=== PATIENT | male | born 1990 | race Caucasian/White ===

== ENCOUNTER 2018-06-30 17:27 | Emergency (ER) | payer OTHER ==
--- NOTE | 2018-06-30 17:40 | ER Report ---
History and Physical Time Seen By MD: 17:40 HPI/ROS CHIEF COMPLAINT: Abdominal pain HISTORY OF PRESENT ILLNESS: 28-year-old male patient presents to emergency room with complaint of abdominal pain. Patient states he's had abdominal pain since . States pain seems to be in the lower abdomen and seems to radiate left right. Patient states that there is nothing seems to make the pain better or worse. He states that he did have a sharp pain on Saturday which he rated a 7 out of 10. He states that happened while he was working and was lifting heavy things. Patient states that currently his pain is a 2-4 out of 10. He denies any fevers, chills, nausea, vomiting or diarrhea. He states he's not had any difficulties eating or drinking. He has not taken any medication for this. Patient also states he does have some tenderness to the top of the left foot. He states that this is been hurting for 2 weeks. States he initially injured it hitting it on a futon in his house. REVIEW OF SYSTEMS: Respiratory: No cough, no dyspnea. Cardiovascular: No chest pain, no palpitations. Gastrointestinal: As noted above. Musculoskeletal: As noted above Allergies: Coded Allergies: No Known Drug Allergies (Unverified , 06/30/18) Home Meds Active Scripts Omeprazole (OMEPRAZOLE) 40 Mg Capsule., 40 MG PO QDAY, #30 CAP Prov:VERNON HAGENP 06/30/18 Sucralfate (CARAFATE) 1 Gm Tablet, 1 GM PO QID, #60 TAB Take before meals and at bedtime. Crush the tablet and mix with water before taking. Prov:VERNON HAGEN 06/30/18 Past Medical/Surgical History Patient has a past medical history of alcohol use. Patient denies any surgical history. Reviewed Nurses Notes: Yes Constitutional Vital Sign - Last 24 Hours 06/30/18 06/30/18 06/30/18 06/30/18 17:35 17:38 17:42 17:57 Temp 98.6 Pulse 108 95 96 Resp 20 B/P (MAP) 165/81 165/81 (109) Pulse Ox 93 95 96 O2 Delivery Room Air 06/30/18 06/30/18 06/30/18 06/30/18 18:12 18:17 18:30 18:42 Pulse 96 92 B/P (MAP) 135/77 (96) 135/81 (99) Pulse Ox 96 96 06/30/18 06/30/18 06/30/18 06/30/18 18:59 19:00 19:12 19:17 Pulse 89 93 B/P (MAP) 147/86 (106) 142/83 (102) Pulse Ox 96 96 06/30/18 06/30/18 06/30/18 06/30/18 19:30 19:32 20:00 20:02 Pulse 90 91 B/P (MAP) 130/77 (94) 135/82 (99) Pulse Ox 98 95 06/30/18 06/30/18 06/30/18 06/30/18 20:17 20:22 20:30 20:37 Pulse 92 93 91 B/P (MAP) 129/74 (92) Pulse Ox 95 97 95 06/30/18 06/30/18 06/30/18 20:52 21:00 21:07 Pulse 101 93 B/P (MAP) 132/78 (96) Pulse Ox 93 95 Physical Exam General Appearance: The patient is alert, has no immediate need for airway protection and no current signs of toxicity. Respiratory: Chest is non tender, lungs are clear to auscultation. Cardiac: regular rate and rhythm Gastrointestinal: Abdomen is soft and non tender, no masses, bowel sounds normal . Musculoskeletal: Neck: Neck is supple and non tender. Extremities have full range of motion and are non tender. Skin: No rashes or lesions. DIFFERENTIAL DIAGNOSIS: After history and physical exam differential diagnosis was considered for abdominal pain including but not limited to appendicitis, cholecystitis, gastritis and urinary tract infection. Medical Decision Making Data Points Result Diagram: 06/30/18191506/30/18 1754 Laboratory Hematology Test 06/30/18 17:54 06/30/18 19:16 06/30/18 19:46 06/30/18 19:58 Sodium Level 138 mmol/L (137-145) Potassium Level 4.1 mmol/L (3.5-5.0) Chloride Level 103 mmol/L (98-107) Carbon Dioxide Level 27 mmol/L (22-30) Blood Urea Nitrogen 15 mg/dl (9-21) Creatinine 1.20 mg/dl (0.66-1.25) Glomerular Filtration Rate Calc > 60.0 Random Glucose 94 mg/dl (75-110) Calcium Level 9.2 mg/dl (8.4-10.2) Total Bilirubin 0.3 mg/dl (0.2-1.3) Aspartate Amino Transf (AST/SGOT) 32 U/L (0-35) Alanine Aminotransferase (ALT/SGPT) 32 U/L (0-56) Alkaline Phosphatase 53 U/L (0-126) Total Protein 7.6 g/dl (6.3-8.2) Albumin 4.4 g/dl (3.5-5.0) Amylase Level 77 U/L (0-110) Lipase 97 U/L (23-300) Red Blood Count 4.36 M/uL (4.00-5.60) Mean Corpuscular Volume 63.1 fL (80.0-96.0) Mean Corpuscular Hemoglobin 18.9 pg (26.0-33.0) Mean Corpuscular Hemoglobin Concent 29.9 g/dL (32.0-36.0) Red Cell Distribution Width 18.7 % (11.5-14.5) Mean Platelet Volume 7.1 fL (7.2-11.1) Neutrophils (%) (Auto) 60.4 % (39.4-72.5) Lymphocytes (%) (Auto) 26.6 % (17.6-49.6) Monocytes (%) (Auto) 8.5 % (4.1-12.4) Eosinophils (%) (Auto) 3.3 % (0.4-6.7) Basophils (%) (Auto) 1.2 % (0.3-1.4) Nucleated RBC Relative Count (auto) 0.0 /100WBC Neutrophils # (Auto) 4.8 K/uL (2.0-7.4) Lymphocytes # (Auto) 2.1 K/uL (1.3-3.6) Monocytes # (Auto) 0.7 K/uL (0.3-1.0) Eosinophils # (Auto) 0.3 K/uL (0.0-0.5) Basophils # (Auto) 0.1 K/uL (0.0-0.1) Nucleated RBC Absolute Count (auto) 0.00 K/uL Peripheral Blood Smear Y/N Urine Color Straw Urine Clarity Clear Urine pH 6.0 pH (4.8-9.5) Urine Specific [place] 1.033 Urine Protein Negative mg/dL (NEGATIVE) Urine Glucose (UA) Negative mg/dL (NEGATIVE) Urine Ketones Negative mg/dL (NEGATIVE) Urine Blood Negative (NEGATIVE) Urine Nitrite Negative (NEGATIVE) Urine Bilirubin Negative (NEGATIVE) Urine Urobilinogen 2.0 mg/dL (0.2-1.9) Urine Leukocyte Esterase Negative (NEGATIVE) Urine RBC None /HPF (0-2/HPF) Urine WBC None /HPF (0-5/HPF) Urine Squamous Epithelial Cells None /LPF (</=FEW) Urine Bacteria Negative /HPF (NONE-FEW) Urine Mucus None /HPF (NONE-FEW) Stool Occult Blood (IFOB) Negative (NEGATIVE) Chemistry Test 06/30/18 17:54 06/30/18 19:16 06/30/18 19:46 06/30/18 19:58 Glomerular Filtration Rate Calc > 60.0 Calcium Level 9.2 mg/dl (8.4-10.2) Total Bilirubin 0.3 mg/dl (0.2-1.3) Aspartate Amino Transf (AST/SGOT) 32 U/L (0-35) Alanine Aminotransferase (ALT/SGPT) 32 U/L (0-56) Alkaline Phosphatase 53 U/L (0-126) Total Protein 7.6 g/dl (6.3-8.2) Albumin 4.4 g/dl (3.5-5.0) Amylase Level 77 U/L (0-110) Lipase 97 U/L (23-300) White Blood Count 8.0 k/uL (4.5-11.0) Red Blood Count 4.36 M/uL (4.00-5.60) Hemoglobin 8.2 g/dL (14.0-18.0) Hematocrit 27.5 % (42.0-52.0) Mean Corpuscular Volume 63.1 fL (80.0-96.0) Mean Corpuscular Hemoglobin 18.9 pg (26.0-33.0) Mean Corpuscular Hemoglobin Concent 29.9 g/dL (32.0-36.0) Red Cell Distribution Width 18.7 % (11.5-14.5) Platelet Count 372 K/uL (150-450) Mean Platelet Volume 7.1 fL (7.2-11.1) Neutrophils (%) (Auto) 60.4 % (39.4-72.5) Lymphocytes (%) (Auto) 26.6 % (17.6-49.6) Monocytes (%) (Auto) 8.5 % (4.1-12.4) Eosinophils (%) (Auto) 3.3 % (0.4-6.7) Basophils (%) (Auto) 1.2 % (0.3-1.4) Nucleated RBC Relative Count (auto) 0.0 /100WBC Neutrophils # (Auto) 4.8 K/uL (2.0-7.4) Lymphocytes # (Auto) 2.1 K/uL (1.3-3.6) Monocytes # (Auto) 0.7 K/uL (0.3-1.0) Eosinophils # (Auto) 0.3 K/uL (0.0-0.5) Basophils # (Auto) 0.1 K/uL (0.0-0.1) Nucleated RBC Absolute Count (auto) 0.00 K/uL Peripheral Blood Smear Y/N Urine Color Straw Urine Clarity Clear Urine pH 6.0 pH (4.8-9.5) Urine Specific [place] 1.033 Urine Protein Negative mg/dL (NEGATIVE) Urine Glucose (UA) Negative mg/dL (NEGATIVE) Urine Ketones Negative mg/dL (NEGATIVE) Urine Blood Negative (NEGATIVE) Urine Nitrite Negative (NEGATIVE) Urine Bilirubin Negative (NEGATIVE) Urine Urobilinogen 2.0 mg/dL (0.2-1.9) Urine Leukocyte Esterase Negative (NEGATIVE) Urine RBC None /HPF (0-2/HPF) Urine WBC None /HPF (0-5/HPF) Urine Squamous Epithelial Cells None /LPF (</=FEW) Urine Bacteria Negative /HPF (NONE-FEW) Urine Mucus None /HPF (NONE-FEW) Stool Occult Blood (IFOB) Negative (NEGATIVE) Urinalysis Test 06/30/18 19:46 Urine Color Straw Urine Clarity Clear Urine pH 6.0 pH (4.8-9.5) Urine Specific [place] 1.033 Urine Protein Negative mg/dL (NEGATIVE) Urine Glucose (UA) Negative mg/dL (NEGATIVE) Urine Ketones Negative mg/dL (NEGATIVE) Urine Blood Negative (NEGATIVE) Urine Nitrite Negative (NEGATIVE) Urine Bilirubin Negative (NEGATIVE) Urine Urobilinogen 2.0 mg/dL (0.2-1.9) Urine Leukocyte Esterase Negative (NEGATIVE) Urine RBC None /HPF (0-2/HPF) Urine WBC None /HPF (0-5/HPF) Urine Squamous Epithelial Cells None /LPF (</=FEW) Urine Bacteria Negative /HPF (NONE-FEW) Urine Mucus None /HPF (NONE-FEW) EKG/Imaging Imaging ABDOMEN/PELVIS WITH CONTRAST HISTORY: abdominal pain TECHNIQUE: Axial images were obtained through the abdomen and pelvis with intravenous contrast . One of the following dose optimization techniques was utilized in the performance of this exam: automated exposure control; adjustment of the mA and/or kv according to patient size; or use of iterative reconstruction technique. Specific details can be referenced in the facility's radiology CT exam operational policy. CONTRAST: 75 cc of Isovue-370 COMPARISON: None. FINDINGS: Visualized lung bases: Negative. Hepatobiliary: Negative. Spleen: Negative. Adrenals: Negative. Pancreas: Negative. Kidneys/ureters/bladder: 4 mm simple right renal cyst. No hydronephrosis. Bowel/peritoneum/mesentery: Normal appendix. No bowel obstruction, free air or ascites. Vessels: Negative. Lymph nodes: There is one mildly enlarged lymph node at the gastrohepatic ligament measuring 1.2 x 1.1 cm (image 34). Pelvic genitourinary: Negative. Bones/body wall: Negative. Other findings: None significant IMPRESSION: 1. Normal appendix. No acute inflammatory process within the abdomen and pelvis. 2. There is one mildly enlarged lymph node at the gastrohepatic ligament of uncertain significance. Report Dictated By: Gato Schafer MD at 06/30/2018 6:56 PM Report E-Signed By: Gato Schafer MD at 06/30/2018 7:01 PM ED Course/Re-evaluation ED Course Patient was admitted to exam room, history and physical were obtained. Differential diagnoses were considered. On examination lungs clear, heart is re gular, abdomen soft nontender. An IV was started, a CBC, CMP, urinalysis were obtained. Initially with his blood work patient had a H&H of 8.8 and 28. Hasn't, hard by the lab work. It was unexpected patient be anemic. Has results we did go ahead and do a CT scan to make sure that there is no obvious bleeding in the abdominal cavity which is causing the patient's pain. I was unremarkable. A repeat CBC was done. That showed a H&H of 8.2 and 27.5. With the patient being obviously anemic an occult stool was done. Which is negative. I do not feel that I had obtained a good sample. I discussed the case with Dr. Zeng, surgeon, who agreed with the patient does need to have an colonoscopy and endoscopy. He is unable to give him in to have that done this week. We will go ahead and discharge him home with Carafate, omeprazole. Patient was given information for [facility] in [place] as well as [facility]. Patient verbalized understanding and agreement with plan. Decision to Disposition Date: Jun 30, 2018 Decision to Disposition Time: 21:03 Depart Departure Latest Vital Signs Vital Signs Date Time Temp Pulse Resp B/P (MAP) Pulse Ox O2 Delivery O2 Flow Rate FiO2 06/30/18 21:07 93 95 06/30/18 21:00 132/78 (96) 06/30/18 17:35 98.6 20 Room Air Impression: Primary Impression: Gastrointestinal bleeding Condition: Improved Disposition: HOME OR SELF-CARE New Scripts Omeprazole (OMEPRAZOLE) 40 Mg Capsule. 40 MG PO QDAY, #30 CAP Prov: VERNON HAGEN 06/30/18 Sucralfate (CARAFATE) 1 Gm Tablet 1 GM PO QID, #60 TAB Take before meals and at bedtime. Crush the tablet and mix with water before taking. Prov: VERNON HAGEN 06/30/18 Patient Instructions: Gastrointestinal Bleeding (ED) Additional Instructions: Increase fluid intake. Get plenty of rest. Follow up with Gastroenterology [facility] [address] [place], [place] [facility] [place] [id number] [facility] [place] I think that you need to have a colonoscopy and endoscopy to find the cause of the bleeding. Return to the ER if condition worsens. Stop taking Ibuprofen or Aleve. Problem Qualifiers Primary Impression: Gastrointestinal bleeding GI bleed type/associated pathology: unspecified gastrointestinal hemorrhage type Qualified Codes: K92.2 - Gastrointestinal hemorrhage, unspecified VERNON HAGEN Jun 30, 2018 17:40
[2018-06-30] MEDS ORDERED: NS(*) 0.9% 1000 ML BAG 1,000 ML IV ONE ×2 (17:46→20:05)
[2018-06-30 18:03] LABS: PLATELET COUNT, AUTOMATED 419 K/uL (150-450)
[2018-06-30] MEDS ORDERED: IOPAMIDOL 76% 75 ML INFUS BTL 75 ML ONE (18:27)
--- NOTE | 2018-06-30 19:04 | RADIOLOGY IMAGING REPORT ---
FACILITY: [facility] [place] PATIENT NAME: He Peraza : 1990 MR: [id number] V: [id number] EXAM DATE: ORDERING PHYSICIAN: VERNON HAGEN TECHNOLOGIST: Location: [facility] Patient: He Peraza : 1990 Visit/Account:[id number] Date of Sevice: 06/30/2018 ABDOMEN/PELVIS WITH CONTRAST HISTORY: abdominal pain TECHNIQUE: Axial images were obtained through the abdomen and pelvis with intravenous contrast . One of the following dose optimization techniques was utilized in the performance of this exam: automate d exposure control; adjustment of the mA and/or kv according to patient size; or use of iterative rec onstruction technique. Specific details can be referenced in the facility's radiology CT exam operati onal policy. CONTRAST: 75 cc of Isovue-370 COMPARISON: None. FINDINGS: Visualized lung bases: Negative. Hepatobiliary: Negative. Spleen: Negative. Adrenals: Negative. Pancreas: Negative. Kidneys/ureters/bladder: 4 mm simple right renal cyst. No hydronephrosis. Bowel/peritoneum/mesentery: Normal appendix. No bowel obstruction, free air or ascites. Vessels: Negative. Lymph nodes: There is one mildly enlarged lymph node at the gastrohepatic ligament measuring 1.2 x 1. 1 cm (image 34). Pelvic genitourinary: Negative. Bones/body wall: Negative. Other findings: None significant IMPRESSION: 1. Normal appendix. No acute inflammatory process within the abdomen and pelvis. 2. There is one mildly enlarged lymph node at the gastrohepatic ligament of uncertain significance. Report Dictated By: Gato Schafer MD at 06/30/2018 6:56 PM Report E-Signed By: Gato Schafer MD at 06/30/2018 7:01 PM WSN:[id number]
[2018-06-30 19:31] LABS: PLATELET COUNT, AUTOMATED 372 K/uL (150-450)
[2018-06-30] MEDS ORDERED: SUCR1TAB85 PO (20:58)
[2018-06-30] MEDS ORDERED: OMEP40CA48 PO (20:58)
[2018-06-30 21:00] VITALS: BP 132/78
== END 2018-06-30 21:14 | disposition home or self-care (01) ==
LOC: ER 18:00
DX: K92.2 Gastrointestinal hemorrhage, unspecified (principal); D64.9 Anemia, unspecified
CPT/HCPCS: 36415; 81001; 82150; 82274; 83690; 85025; 96360; 99284; J7030; Q9967; 74177; 82040; 82247; 82310; 82374; 82435; 82565; 82947; 84075; 84132; 84155; 84295; 84450; 84460; 84520

== ENCOUNTER 2018-12-04 13:05 | Outpatient (RCR) | payer OTHER ==
[2018-10-02 08:16] VITALS: BP 135/78
[2018-10-02 09:33] LABS: PLATELET COUNT, AUTOMATED 346 K/uL (150-450)
--- NOTE | 2018-10-02 10:02 | ONCOLOGY CONSULTATION ---
EVENT DATE: October 02, 2018 REFERRING PHYSICIAN: Dr. Donal Valerio REASON FOR CONSULTATION Evaluation and management of microcytic anemia due to iron deficiency. HEMATOLOGY HISTORY Patient is a 28-year old male who presented with occasional episodes of rectal bleeding so the patient had a CBC done on July 22, 2018, which showed white count 4.6, hemoglobin 8.6, hematocrit 29.4, MCV 59 and platelet count 379. His iron studies shows serum iron of 14 and total iron binding capacity 443 and ferritin was only 5. He had transglutaminase antibody which came back negative. Patient has been seen by Dr. Valerio, builder beam, who did a GI workup and colonoscopy and EGD both came back negative for a bleeding source. As per patient, he had also capsule endoscopy, which did not show any evidence or source of bleeding. Patient did not receive any iron supplementation. PAST MEDICAL HISTORY Microcytic anemia, diagnosed June 2018. PAST SURGICAL HISTORY [place] tooth extraction. FAMILY HISTORY Negative for cancer or blood diseases. SOCIAL HISTORY Patient is single with no children. 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 He denies any abuse of tobacco or illicit drugs. He drinks on the weekends. CURRENT MEDICATIONS None. ALLERGIES No known drug allergies. REVIEW OF SYSTEMS CONSTITUTIONAL: No appetite or weight change. No fever, chills or sweating. No recent infection. HEENT: Ears: No tinnitus or hearing problem. Nose: No nasal discharge or epistaxis. Throat: No sore throat or mouth ulcers. Eyes: No diplopia or visual changes. RESPIRATORY: No shortness of breath. No cough, expectoration or hemoptysis. CARDIOVASCULAR: No chest pain, orthopnea, or paroxysmal nocturnal dyspnea (PND). No edema. No palpitations. GASTROINTESTINAL: He has loose stools but denies any black tarry stools. He has some rectal bleeding occasionally, like one episode every two weeks. GENITOURINARY: Patient has had heavy periods for years, and she has been seen by a italian lecturer, and she was offered uterine ablation, but the patient refused the procedure. As per patient, she has had heavy periods for a total of seven days every month. MUSCULOSKELETAL: No pain in the muscles, joints or bones. NEUROLOGICAL: No tingling or numbness in the hands or feet. No headaches or convulsions. HEMATOLOGIC/LYMPHATIC: No bleeding or easy bruising. No weakness or fatigue. No enlarged lymph nodes. SKIN: No skin rash or lumps. PSYCHIATRIC: No anxiety or depression. PHYSICAL EXAMINATION GENERAL: Looks stable. Well-developed, well-nourished, and in no acute distress. VITAL SIGNS: Blood pressure 135/78, pulse 80 per minute, respirations 16 per minute, temperature 98.1, pulse ox 93% on room air. HEENT: Head: Atraumatic. No sinus tenderness to palpation. Eyes: No icterus or conjunctivitis. Mouth and Throat: No oral thrush or mucositis. NECK: Supple. No cervical or supraclavicular lymphadenopathy. LUNGS: Clear to auscultation and percussion bilaterally. HEART: Regular rate and rhythm. No gallops, murmurs, clicks or rubs. ABDOMEN: Soft and lax. No tenderness. No hepatosplenomegaly. No masses. EXTREMITIES: No cyanosis, clubbing or edema. LYMPHATICS: No peripheral lymphadenopathy. NEUROLOGICAL: Conscious, alert and oriented x3. No focal motor or sensory deficits. PSYCHIATRIC: Mood and affect appear normal. SKIN: No skin rash, bruise or purpuric eruption. IMPRESSION Microcytic anemia due to iron deficiency. Patient has fresh rectal bleeding and he thought this could be due to his hemorrhoids. His gastrointestinal workup including EGD, colonoscopy and capsule endoscopy did not show any source of bleeding. I am planning to repeat his CBC and iron studies with ferritin today and I will start iron supplementation orally with ferrous sulfate 325 mg three times daily with meals. I will see him again in two months with CBC, iron studies with ferritin. If his ferritin corrected as well as his anemia then we will continue with iron supplementation for a total of six months to replete his iron stores but if the patient in two months shows failure of oral iron supplementation then I will plan for intravenous iron supplementation and I will request a surgical consult to evaluate for hemorrhoidectomy. I explained that to the patient and he is agreeable with the plan of management. PLAN 1. Check CBC and iron studies with ferritin today. 2. Ferrous sulfate 325 mg three times daily with meals. 3. Patient to return in two months with CBC and iron studies with ferritin. 4. Consider surgical consult. 5. Patient to contact us for any new concerns or complaints. MADDY
[2018-10-02 12:36] VITALS: BP 140/80
[2018-12-02 08:34] VITALS: BP 122/81
[2018-12-02 08:42] LABS: PLATELET COUNT, AUTOMATED 259 K/uL (150-450)
[~2018-12-04 13:05] MED LIST: OMEP40CA48 PO; SUCR1TAB85 PO
[2018-12-04 13:09] VITALS: BP 144/86
--- NOTE | 2018-12-04 20:53 | [facility] ONCOLOGY NOTE ---
EVENT DATE: December 04, 2018 DIAGNOSIS Iron deficiency anemia. CHIEF COMPLAINT Patient is here today for followup of his iron deficiency anemia. HEMATOLOGY HISTORY Patient is a 28-year-old male who presented with occasional episodes of rectal bleeding, so the patient had a CBC done on July 22, 2018, which showed white count 4.6, hemoglobin 8.6, hematocrit 29.4, MCV 59, and platelet count 379. His iron studies showed serum iron of 14, total iron binding capacity 443, and ferritin was only 5. He had transglutaminase antibody which came back negative. Patient has been seen by Dr. Valerio, retail stocker, who did a GI workup with colonoscopy and EGD. Both came back negative for a bleeding source. As per patient, he had also capsule endoscopy, which did not show any evidence or source of bleeding. Patient did not receive any iron supplementation. Patient started oral iron supplementation on the September. HISTORY OF PRESENT ILLNESS Patient is here today for followup of his iron deficiency anemia due to bleeding from his hemorrhoids. He is doing fine currently. He has some constipation, but he continues to have rectal bleeding sometimes. He has numbness in his legs sometimes, which is positional. Other than that, he is really doing very well. He was able to take at least two pills of iron daily during the last few months since he had been seen at that time. PAST MEDICAL HISTORY Microcytic anemia, diagnosed June 2018. PAST SURGICAL HISTORY [place] tooth extraction. FAMILY HISTORY Negative for cancer or blood diseases. SOCIAL HISTORY Patient is single with no children. 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 He denies any abuse of tobacco or illicit drugs. He drinks on the weekends. CURRENT MEDICATIONS Ferrous sulfate 325 mg p.o. b.i.d. ALLERGIES No known drug allergies. REVIEW OF SYSTEMS CONSTITUTIONAL: No appetite or weight change. No fever, chills, or sweating. No recent infection. HEENT: Ears: No tinnitus or hearing problem. Nose: No nasal discharge or epistaxis. Throat: No sore throat or mouth ulcers. Eyes: No diplopia or visual changes. RESPIRATORY: No shortness of breath. No cough, expectoration, or hemoptysis. CARDIOVASCULAR: No chest pain, orthopnea, or paroxysmal nocturnal dyspnea (PND). No edema. No palpitations. GASTROINTESTINAL: No nausea or vomiting. No diarrhea. He has constipation and rectal bleeding sometimes. It was thought his GI bleeding is due to his hemorrhoids. No change in bowel movements. No heartburn or swallowing difficulties. No abdominal pain. No jaundice. No hematemesis or melena. GENITOURINARY: No hematuria or dysuria. MUSCULOSKELETAL: No pain in the muscles, joints or bones. NEUROLOGIC: He has some positional numbness in his legs sometimes. No headaches or convulsions. HEMATOLOGIC/LYMPHATIC: No bleeding or easy bruising. No weakness or fatigue. No enlarged lymph nodes. SKIN: No skin rash or lumps. PSYCHIATRIC: No anxiety or depression. PHYSICAL EXAMINATION GENERAL: Looks stable. Well developed, well nourished, and in no acute distress. VITAL SIGNS: Blood pressure 144/86, pulse 78 per minute, respirations 16 per minute, temperature 97.6, pulse ox 94%. HEENT: Head: Atraumatic. No sinus tenderness to palpation. Eyes: No icterus or conjunctivitis. Mouth and Throat: No oral thrush or mucositis. NECK: Supple. No cervical or supraclavicular lymphadenopathy. LUNGS: Clear to auscultation and percussion bilaterally. HEART: Regular rate and rhythm. No gallops, murmurs, clicks, or rubs. ABDOMEN: Soft and lax. No tenderness. No hepatosplenomegaly. No masses. EXTREMITIES: No cyanosis, clubbing, or edema. LYMPHATICS: No peripheral lymphadenopathy. NEUROLOGIC: Conscious, alert, and oriented times three. No focal motor or sensory deficits. PSYCHIATRIC: Mood and affect appear normal. SKIN: No skin rash, bruise, or purpuric eruption. DIAGNOSTIC DATA CBC showed white count 4.6, hemoglobin 16.4, hematocrit 50.9, platelets 259,000. Iron studies showed serum iron 104, TIBC 374, iron saturation 27.8, and the ferritin 21 which is up from 5. ASSESSMENT Iron deficiency anemia most probably due to rectal bleeding from his hemorrhoids. Patient had a gastrointestinal workup including esophagogastroduodenoscopy, colonoscopy, and capsule endoscopy, which did not show any source of bleeding. Patient started ferrous sulfate 325 mg on October 02, 2018, but he was able to take only two pills a day, and his ferritin improved from 5 to 21. As per patient, he continues to have episodic rectal bleeding, thought to be due to his hemorrhoids. I am planning to continue ferrous sulfate 325 mg twice daily, and I will see him in three months from now with CBC and iron studies with ferritin. I advised the patient if he continues to have rectal bleeding, to see a surgeon to remove his hemorrhoids. PLAN 1. Continue followup. 2. Continue ferrous sulfate 325 mg two times daily. 3. Patient to return in three months with CBC and iron studies with ferritin. 4. Patient to contact us for any new concern or complaints. MADDY
== END 2018-12-30 ==
LOC: ONC 13:05
PROVIDERS: ATTEND Internal Medicine Hematology
DX: D50.9 Iron deficiency anemia, unspecified (principal); D60.9 Acquired pure red cell aplasia, unspecified
CPT/HCPCS: 36415; 82728; 83540; 83550; 85025; 99202; 99212

== ENCOUNTER 2019-04-07 00:22 | Day surgery (SDC) | payer OTHER ==
[~2019-04-07] VITALS: Ht 188 cm; Wt 103.4 kg
[~2019-04-07 00:22] MED LIST changes: +TRIA60LO3 TP
[2019-04-07] MEDS ORDERED: LEVOFLOXACIN/D5W*500 MG/100 ML 100 ML IVPB ONE (07:30)
[2019-04-07] MEDS ORDERED: metroNIDAZOLE* 500MG/100ML BAG 100 ML IVPB ONE (07:30)
[2019-04-07] MEDS ORDERED: DEXAMETHASONE SOD PHOS 10MG/ML ONE (07:42)
[2019-04-07] MEDS ORDERED: fentaNYL CITR 100 MCG/2 ML AMP ONE ×2 (07:42→09:50)
[2019-04-07] MEDS ORDERED: PROPOFOL EMUL(*) 10MG/ML 20 ML 20 ML ONE (07:42)
[2019-04-07] MEDS ORDERED: LIDOCAINE 2% IV 100 MG/5ML SYR ONE (07:42)
[2019-04-07] MEDS ORDERED: ONDANSETRON 4 MG/2 ML VIAL ONE (07:42)
[2019-04-07] MEDS ORDERED: NORMOSOL R SOLN(*) 1000 ML BAG 1,000 ML IV PRN (08:55)
[2019-04-07] MEDS ORDERED: LIDOCAINE/SOD BICARB 8.4% SYR ID ONE (08:55)
[2019-04-07] MEDS ORDERED: FAMOTIDINE 20 MG TAB PO ONE (08:55)
[2019-04-07 09:02] VITALS: BP 134/75
[2019-04-07] MEDS ORDERED: MIDAZOLAM 2 MG/2 ML VIAL ONE (09:08)
[2019-04-07] MEDS ORDERED: BUPIVACAINE 0.5% INJ 50ML VIAL INFIL ONE (09:16)
[2019-04-07] MEDS ORDERED: LIDOCAINE 2% 200MG/10ML UROJET ONE ×2 (09:16→09:28)
[2019-04-07] MEDS ORDERED: LIDO/EPI 1% MDV 1:100,000 20ML INFIL ONE (09:16)
[2019-04-07] MEDS ORDERED: BUPIVACAINE/EPI 0.5% 50ML VIAL INFIL ONE (09:28)
[2019-04-07] MEDS ORDERED: MIDAZOLAM 2 MG/2 ML VIAL IVP ONE (09:28)
[2019-04-07] MEDS ORDERED: HYDR-654 PO (11:17)
[2019-04-07] MEDS ORDERED: LIDO15SO2 TOP (11:18)
--- NOTE | 2019-04-07 11:20 | Short(Outpt) Discharge Summary ---
Discharge Summary Reason for Hosp/Final Diag: (1) Gastrointestinal bleeding Status: Acute Hospital Course & Plan: pt presented for cyst removal and hemorrhoidectomy. he tolerated the procedures well and will be discharged home when criteria met. Departure Discharge to: Home Discharge Instructions Home Meds Active Scripts Lidocaine HCl VISCOUS 2% (Lidocaine Viscous) 2 % Solution, 1 FRANCIA TOP Q4H PRN for PAIN, #1 TUBE 1 Refill Prov:KYLAH ARCE 04/07/19 Hydrocodone Bit/Acetaminophen (NORCO 7.5-325 TABLET) 1 Each Tablet, 1 EACH PO Q4H PRN for PAIN, #30 TAB Prov:KYLAH ARCE 04/07/19 Reported Medications Triamcinolone Acetonide 0.1% (TRIAMCINOLONE ACETONIDE 0.1%) 60 Ml Lotion, 60 ML TP PRN, BOT 3 Refills 03/13/19 Diet: Regular Activity: As Tolerated Special Instructions: sitz baths 3 times/day for 15 minutes. take fiber supplement, stool softener, and a laxative as needed. f/u dr[facility] 2 wks ([phone]). KYLAH ARCE Apr 07, 2019 11:20
--- NOTE | 2019-04-07 11:22 | Post Operative Progress Note ---
Post Operative Progress Note Date: Apr 07, 2019 Time: 11:17 Surgeon: dr. chelly arce Hourly Caregiver: none Anesthesia: gen, local dr. sauer Pre-Op Diagnosis: forehead cyst hemorrhoids brbpr Post-Op Diagnosis: same Procedure(s): forehead csyt removal hemrrhoidectomy Specimen Removed:(May be N/A): cyst hemorrhoids Complications: none Estimated Blood Loss: minimal KYLAH ARCE Apr 07, 2019 11:22
[2019-04-07 11:47] VITALS: BP 110/68
[2019-04-07 11:55] VITALS: BP 122/78
[2019-04-07 11:56] VITALS: BP 113/79
--- NOTE | 2019-04-16 16:30 | OPERATIVE REPORT 1 ---
EVENT DATE: April 07, 2019 SURGEON: Fransico [place] MD ANESTHESIOLOGIST: Michael Jang MD ANESTHESIA: General and local. [employer] OPERATOR: None. PREOPERATIVE DIAGNOSES 1. Left forehead cyst. 2. Hemorrhoids. POSTOPERATIVE DIAGNOSES 1. Left forehead cyst. 2. Hemorrhoids. PROCEDURES PERFORMED 1. Excision of left forehead cyst. 2. Hemorrhoidectomy. FLUIDS IV crystalloid. ESTIMATED BLOOD LOSS Minimal. SPECIMENS 1. Forehead cyst. 2. Hemorrhoids. COMPLICATIONS None. INDICATIONS This is a 29-year-old male with chronic bright red blood per rectum. He has minimal perianal pain. On physical exam, he does have internal and external hemorrhoids. He also has a forehead cyst that is bothersome to him. The risks and benefits of the procedures were explained, and consent was signed. DESCRIPTION OF PROCEDURE Patient was taken to the operating room and placed in the supine position. General anesthesia was administered per anesthesia team. Patient was prepped and draped in normal sterile fashion. Local analgesia is injected into the dermis above the cyst, and a small incision was made over the cyst. The cyst was completely removed. It was less than 1 cm. Hemostasis was assured. The wound was closed with interrupted 4-0 Monocryl subcuticular stitch. Appropriate dressings were applied. Attention was then turned to hemorrhoidectomy. The patient was in stirrups and prepped and draped in sterile fashion. Exam revealed internal and external hemorrhoids. Right anterior, right posterior, and left lateral internal and external hemorrhoids were removed. They were all removed in similar fashion. A small incision was made in the anoderm. Some blunt dissection was used to separate the hemorrhoidal tissue from surrounding tissue. Harmonic scalpel was used to carefully divide the hemorrhoidal tissue off the internal sphincter muscle. Hemostasis was assured. The wound was then closed with a running locking 3-0 chromic stitch. This was done for each of the mentioned hemorrhoidal areas. Digital exam showed the anus to be patent. Hemostasis was assured. Appropriate dressings were applied. Patient tolerated the procedure well. There were no complications. MTDD
== END 2019-04-07 11:47 | disposition home or self-care (01) ==
LOC: OR 00:22
PROVIDERS: ATTEND Surgery
DX: L72.11 Pilar cyst (principal); K64.9 Unspecified hemorrhoids
CPT/HCPCS: 11440; 46260; 88304; 88305; J1100; J1956; J2001; J2250; J2405; J2704; J3010; J3490